=== PATIENT | male | born 1945 | race Two or more races ===

== ENCOUNTER 2018-04-30 03:41 | Inpatient (IN) | payer SELFPAY ==
[2018-04-30] VITALS (8 sets, daily range): BP systolic 126–168; BP diastolic 71–93
[~2018-04-30] VITALS: Ht 177.8 cm; Wt 82.6 kg
[2018-04-30] MEDS ORDERED: NITROGLYCERIN OINT 1GM/INCH UDPKT TD ONE (04:15)
[2018-04-30] MEDS ORDERED: FUROSEMIDE 40MG/4ML VIAL IV ONE (04:15)
[2018-04-30] MEDS ORDERED: ASPIRIN 81MG TABLET PO ONE (04:15)
[2018-04-30 04:55] LABS: BASOPHILS % 0.9 % (0.0-2.0); EOSINOPHILS % 4.3 % (0.0-5.0); HEMATOCRIT. 36.3 % (42.0-52.0); HEMOGLOBIN. 11.8 g/dL (14.0-18.0); LYMPHOCYTES % 14.4 % (20.0-50.0); MEAN CORPUSCULAR HEMOGLOBIN 28.6 pg (28.0-32.0); MEAN CORPUSCULAR VOLUME 88.1 fL (80.0-94.0); MEAN PLATELET VOLUME 8.8 fl (7.4-10.4); NEUTROPHILS % 74.4 % (40.0-76.0); PLATELET 188 x1000/uL (130-400); RED BLOOD CELL COUNT 4.12 mill/uL (4.7-6.1); RED CELL DISTRIBUTION WIDTH 14.6 % (11.6-14.6)
[2018-04-30 05:04] LABS: CHLORIDE 105 mEq/L (98-107)
[2018-04-30 05:06] LABS: PARTIAL THROMBOPLASTIN TIME 27.1 sec (23.4-31.0); PROTHROMBIN TIME 10.2 sec (9.1-11.1)
[2018-04-30 05:12] LABS: BG BASE EXCESS -1.2 mmol/L (-2.0-2.0); BG BILEVEL POS AIRWAY PRESSURE 15/5; BG CARBOXYHEMOGLOBIN 0.5 % (0.5-1.5); BG DEOXYHEMOGLOBIN 0.3 % (0.0-5.0); BG FRACTION INSPIRED OXYGEN 100; BG HCO3 ACT 26.3 mmol/L (22.0-26.0); BG METHEMOGLOBIN 0.2 % (0.0-1.5); BG OXYGEN SATURATION 99.7 % (92.0-98.5); BG PCO2 56.9 mmHg (35.0-45.0); BG PH 7.283 (7.350-7.450); BG PO2 353.8 mmHg (75.0-100.0); BG SAMPLE SITE RIGHT RADIAL; BG TOTAL HEMOGLOBIN 12.2 g/dL (12.0-18.0); BG VENT MODE MASK - BIPAP; BG VENT RATE 20 set
[2018-04-30] MEDS ORDERED: NEBI5TAB3 MT (11:36)
[2018-04-30] MEDS ORDERED: ACET-2178 PO (11:36)
[2018-04-30] MEDS ORDERED: COLC0.6C3 PO (11:36)
[2018-04-30] MEDS ORDERED: AMLO10TA4 MT (11:36)
[2018-04-30] MEDS ORDERED: FERR236T3 MT (11:36)
[2018-04-30] MEDS ORDERED: PROP40TA7 MT (11:36)
[2018-04-30] MEDS ORDERED: trimetazidine PO (11:36)
[2018-04-30] MEDS ORDERED: LATA2.5D6 EACHEYE (11:36)
[2018-04-30] MEDS ORDERED: BISA-81 MT (11:36)
[2018-04-30] MEDS ORDERED: SAXA2.5T MT (11:36)
[2018-04-30] MEDS ORDERED: [UNRECOGNIZED DRUG - OTHER] PO (11:36)
[2018-04-30] MEDS ORDERED: [UNRECOGNIZED DRUG - OTHER] PO (11:36)
[2018-04-30] MEDS ORDERED: PANT40TA4 MT (11:36)
[2018-04-30] MEDS ORDERED: BRIM.2 EACHEYE (11:36)
[2018-04-30] MEDS ORDERED: DEXTROSE 50% WATER 50ML SYRINGE IV PRN (12:15)
[2018-04-30] MEDS ORDERED: GUAIFENESIN 200MG/10ML SUGAR FREE UDC PO PRN (12:15)
[2018-04-30] MEDS ORDERED: FUROSEMIDE 40MG/4ML VIAL IVP SCH (12:15)
[2018-04-30] MEDS ORDERED: DIPHENHYDRAMINE 50MG/ML VIAL IV PRN (12:15)
[2018-04-30] MEDS ORDERED: IPRATROPIUM/ALBUTEROL 0.5-3(2.5)MG/3ML NEB INH PRN (12:15)
[2018-04-30] MEDS ORDERED: MAGNESIUM/ALUMINUM HYDROXIDE/SIMETHICONE 30ML UDC PO PRN (12:15)
[2018-04-30] MEDS ORDERED: ONDANSETRON 4MG ODT PO PRN (12:15)
[2018-04-30] MEDS ORDERED: ONDANSETRON HCL 4MG/2ML INJ IV PRN (12:15)
[2018-04-30] MEDS ORDERED: CLONIDINE 0.1MG TABLET PO PRN (12:15)
[2018-04-30] MEDS ORDERED: ACETAMINOPHEN 325MG TABLET PO PRN (12:15)
[2018-04-30] MEDS ORDERED: PANTOPRAZOLE 40MG DR TABLET PO SCH (12:30)
[2018-04-30] MEDS: ENOXAPARIN 40MG/0.4ML SYR SUBCUT SCH (12:43)
[2018-04-30] MEDS: CLOPIDOGREL 75MG TABLET PO SCH (12:44)
[2018-04-30] MEDS: NITROGLYCERIN OINT 1GM/INCH UDPKT TD SCH ×4 (12:44→23:36)
[2018-04-30] MEDS: BLOOD SUGAR DIAGNOSTIC STRIP TEST SCH ×3 (12:45→20:52)
[2018-04-30] MEDS: SODIUM CHLORIDE 0.9% INJ 3ML FLUSH IVF SCH ×2 (12:45→20:43)
[2018-04-30] MEDS: INSULIN LISPRO 100 UNITS/ML SUBCUT SCH ×3 (12:45→20:54)
[2018-04-30] MEDS: LOSARTAN POTASSIUM 25 MG TABLET PO SCH ×2 (15:00→20:31)
[2018-04-30] MEDS ORDERED: HYDRALAZINE 20MG/ML VIAL IV PRN (15:00)
[2018-04-30] MEDS: NEBIVOLOL HCL 5 MG TABLET PO SCH (15:48)
[2018-04-30] MEDS: PROPRANOLOL HCL 10MG TABLET PO SCH (17:00)
[2018-04-30] MEDS: FUROSEMIDE 40MG/4ML VIAL IVP SCH (18:09)
[2018-04-30] MEDS ORDERED: TRAMADOL HCL/ACETAMINOPHEN 37.5/325MG TABLET PO PRN (18:30)
[2018-04-30] MEDS ORDERED: MAGNESIUM HYDROXIDE 400MG/5ML 30ML UDC PO PRN (18:30)
[2018-04-30] MEDS ORDERED: TEMAZEPAM 15MG CAPSULE PO PRN (18:30)
[2018-04-30] MEDS: BRIMONIDINE 0.2% OPHTH DROPS 5ML BOTHEYE SCH (20:42)
[2018-04-30] MEDS: LATANOPROST 0.005% OPHTH DROPS 2.5ML BOTHEYE SCH (20:43)
[2018-04-30] MEDS: INSULIN GLARGINE UD 100 UNITS/ML SYR SUBCUT SCH (23:34)
[2018-05-01] VITALS (11 sets, daily range): BP systolic 122–161; BP diastolic 63–83
[2018-05-01] MEDS: LATANOPROST 0.005% OPHTH DROPS 2.5ML BOTHEYE SCH ×3 (03:48→18:31)
[2018-05-01] MEDS: SODIUM CHLORIDE 0.9% INJ 3ML FLUSH IVF SCH ×3 (03:48→21:56)
[2018-05-01] MEDS: NITROGLYCERIN OINT 1GM/INCH UDPKT TD SCH ×4 (05:51→23:47)
[2018-05-01] MEDS: PANTOPRAZOLE 40MG DR TABLET PO SCH (05:52)
[2018-05-01] MEDS: BRIMONIDINE 0.2% OPHTH DROPS 5ML BOTHEYE SCH ×3 (05:52→21:56)
[2018-05-01] MEDS: FUROSEMIDE 40MG/4ML VIAL IVP SCH ×2 (05:52→18:29)
[2018-05-01 06:47] LABS: BASOPHILS % 1.5 % (0.0-2.0); EOSINOPHILS % 6.8 % (0.0-5.0); HEMATOCRIT. 33.9 % (42.0-52.0); HEMOGLOBIN. 11.3 g/dL (14.0-18.0); LYMPHOCYTES % 27.4 % (20.0-50.0); MEAN CORPUSCULAR HEMOGLOBIN 28.9 pg (28.0-32.0); MEAN CORPUSCULAR VOLUME 86.7 fL (80.0-94.0); MEAN PLATELET VOLUME 8.9 fl (7.4-10.4); MONOCYTES % 7.3 % (2.0-8.0); PLATELET 193 x1000/uL (130-400); RED CELL DISTRIBUTION WIDTH 14.3 % (11.6-14.6)
[2018-05-01 07:04] LABS: CHLORIDE 102 mEq/L (98-107)
[2018-05-01 07:15] LABS: LDL CHOLESTEROL 168 mg/dL (5-100)
[2018-05-01 07:17] LABS: CREATINE KINASE 35 IU/L (39-308); CREATINE KINASE MB FRACTION < 1.0 ng/mL (0.5-3.6)
[2018-05-01 07:18] LABS: HDL CHOLESTEROL 37 mg/dL (40-59)
[2018-05-01] MEDS: INSULIN LISPRO 100 UNITS/ML SUBCUT SCH ×4 (08:00→22:09)
[2018-05-01] MEDS: BLOOD SUGAR DIAGNOSTIC STRIP TEST SCH ×4 (08:16→21:00)
[2018-05-01] MEDS: NEBIVOLOL HCL 5 MG TABLET PO SCH (08:17)
[2018-05-01] MEDS: PROPRANOLOL HCL 10MG TABLET PO SCH ×3 (08:17→17:00)
[2018-05-01] MEDS: CLOPIDOGREL 75MG TABLET PO SCH (08:18)
[2018-05-01] MEDS: DOCUSATE SODIUM 100MG CAPSULE PO SCH ×2 (08:18→18:29)
[2018-05-01] MEDS: COLCHICINE 0.6MG TABLET PO SCH (08:18)
[2018-05-01] MEDS: ENOXAPARIN 40MG/0.4ML SYR SUBCUT SCH (08:18)
[2018-05-01] MEDS: ASPIRIN 81MG EC TABLET PO SCH (08:18)
[2018-05-01] MEDS: LOSARTAN POTASSIUM 25 MG TABLET PO SCH ×2 (08:18→21:55)
[2018-05-01] MEDS ORDERED: POTASSIUM CHLORIDE 20MEQ TABLET SR PO NR ×2 (10:30→18:00)
[2018-05-01] MEDS ORDERED: REGADENOSON 0.4 MG/5 ML IV ONE (13:00)
[2018-05-01] MEDS ORDERED: MAGNESIUM 2 G PREMIX 50 ML IV NR (15:00)
[2018-05-01] MEDS: INSULIN GLARGINE UD 100 UNITS/ML SYR SUBCUT SCH (22:09)
[2018-05-02] VITALS (10 sets, daily range): BP systolic 123–161; BP diastolic 64–82
[2018-05-02 05:46] LABS: BASOPHILS % 1.2 % (0.0-2.0); EOSINOPHILS % 8.9 % (0.0-5.0); HEMATOCRIT. 32.6 % (42.0-52.0); HEMOGLOBIN. 10.9 g/dL (14.0-18.0); LYMPHOCYTES % 35.4 % (20.0-50.0); MEAN CORPUSCULAR HEMOGLOBIN 29.1 pg (28.0-32.0); MEAN PLATELET VOLUME 9.1 fl (7.4-10.4); MONOCYTES % 8.6 % (2.0-8.0); NEUTROPHILS % 45.9 % (40.0-76.0); PLATELET 202 x1000/uL (130-400); RED BLOOD CELL COUNT 3.75 mill/uL (4.7-6.1); RED CELL DISTRIBUTION WIDTH 14.4 % (11.6-14.6)
[2018-05-02] MEDS: SODIUM CHLORIDE 0.9% INJ 3ML FLUSH IVF SCH ×2 (06:45→12:09)
[2018-05-02] MEDS: NITROGLYCERIN OINT 1GM/INCH UDPKT TD SCH ×2 (06:45→12:07)
[2018-05-02] MEDS: PANTOPRAZOLE 40MG DR TABLET PO SCH (06:45)
[2018-05-02] MEDS: FUROSEMIDE 40MG/4ML VIAL IVP SCH (06:45)
[2018-05-02] MEDS: BRIMONIDINE 0.2% OPHTH DROPS 5ML BOTHEYE SCH ×2 (06:46→12:09)
[2018-05-02] MEDS: LATANOPROST 0.005% OPHTH DROPS 2.5ML BOTHEYE SCH ×3 (06:46→12:09)
[2018-05-02] MEDS: BLOOD SUGAR DIAGNOSTIC STRIP TEST SCH ×2 (07:30→12:04)
[2018-05-02] MEDS: INSULIN LISPRO 100 UNITS/ML SUBCUT SCH ×2 (08:00→12:08)
[2018-05-02] MEDS ORDERED: REGADENOSON 0.4 MG/5 ML IV ONE (08:06)
[2018-05-02] MEDS: NEBIVOLOL HCL 5 MG TABLET PO SCH (09:00)
[2018-05-02] MEDS: PROPRANOLOL HCL 10MG TABLET PO SCH ×2 (09:00→12:07)
[2018-05-02] MEDS: COLCHICINE 0.6MG TABLET PO SCH (12:06)
[2018-05-02] MEDS: ENOXAPARIN 40MG/0.4ML SYR SUBCUT SCH (12:06)
[2018-05-02] MEDS: DOCUSATE SODIUM 100MG CAPSULE PO SCH (12:07)
[2018-05-02] MEDS: ASPIRIN 81MG EC TABLET PO SCH (12:07)
[2018-05-02] MEDS: LOSARTAN POTASSIUM 25 MG TABLET PO SCH (12:07)
[2018-05-02] MEDS: CLOPIDOGREL 75MG TABLET PO SCH (12:07)
[2018-05-02 17:06] LABS: A/G RATIO 0.8 (0.7-1.7); ALBUMIN 3.3 g/dL (2.9-4.4); ALPHA-1-GLOBULIN 0.2 g/dL (0.0-0.4); ALPHA-2-GLOBULIN 0.8 g/dL (0.4-1.0); BETA GLOBULIN 1.1 g/dL (0.7-1.3); GAMMA GLOBULINS 1.9 g/dL (0.4-1.8); M-SPIKE Not Observed g/dL (Not Observed); TOTAL PROTEIN SERUM 7.3 g/dL (6.0-8.5)
[2018-05-03] MEDS ORDERED: FAMOTIDINE 20MG TABLET PO SCH (09:00)
== END 2018-05-02 15:10 | disposition home or self-care (01) | DRG 190 ==
LOC: ER 03:41 → 5EST 05:40 → EDBEDREQTM 05:45 → EDBEDREQ 05:45 → ENRESERV 06:54
PROVIDERS: ADMIT Internal Medicine; ATTEND Internal Medicine
PROC: 5A09357 Assistance with Respiratory Ventilation, Less than 24 Consecutive Hours, Continuous Positive Airway Pressure (ICD-10-PCS; principal; 2018-04-30)
DX: I21.4 Non-ST elevation (NSTEMI) myocardial infarction (principal); J96.90 Respiratory failure, unspecified, unspecified whether with hypoxia or hypercapnia; N17.9 Acute kidney failure, unspecified; I50.43 Acute on chronic combined systolic (congestive) and diastolic (congestive) heart failure; I13.0 Hypertensive heart and chronic kidney disease with heart failure and stage 1 through stage 4 chronic kidney disease, or unspecified chronic kidney disease; D64.9 Anemia, unspecified; E11.22 Type 2 diabetes mellitus with diabetic chronic kidney disease; E83.42 Hypomagnesemia; J44.9 Chronic obstructive pulmonary disease, unspecified; D72.829 Elevated white blood cell count, unspecified; E78.00 Pure hypercholesterolemia, unspecified; E78.5 Hyperlipidemia, unspecified; E87.6 Hypokalemia; H40.9 Unspecified glaucoma; I25.10 Atherosclerotic heart disease of native coronary artery without angina pectoris; K21.9 Gastro-esophageal reflux disease without esophagitis; M10.9 Gout, unspecified; R25.1 Tremor, unspecified; M19.90 Unspecified osteoarthritis, unspecified site; R94.31 Abnormal electrocardiogram [ECG] [EKG]; H26.9 Unspecified cataract; N18.3 Chronic kidney disease, stage 3 (moderate); Z79.899 Other long term (current) drug therapy; I25.2 Old myocardial infarction; Z87.891 Personal history of nicotine dependence; Z95.1 Presence of aortocoronary bypass graft
CPT/HCPCS: 36415; 36600; 71045; 76770; 78452; 80048; 80053; 80061; 82375; 82550; 82553; 82805; 82962; 83036; 83735; 83880; 84155; 84165; 84484; 84550; 85025; 85379; 85610; 85730; 87086; 93005; 93017; 93306; 93970; 94660; 96374; 99291; A9500; J1650; J1815; J1940; J2785; J3475; J7620